=== PATIENT | female | born 1970 | race Caucasian/White ===

== ENCOUNTER 2021-09-17 11:28 | Emergency (ER) | payer OTHER, SELFPAY ==
--- NOTE | ~2021-09-17 | XR_ITS ---
XR finger 3rd LT min 2V 09/17/2021 11:46 Indication: Left third finger pain after trauma Procedure: 4 views left third finger Comparison: No prior studies for comparison. Findings: No fracture, subluxation or dislocation. There is anatomic alignment. No erosive changes. N o significant soft tissue abnormality. No foreign bodies. Impression: 1: No acute abnormality of the left third finger. Reviewed, dictated and finalized at location A. MANAGER Impression: 1: No acute abnormality of the left third finger.
[2021-09-17 11:34] VITALS: BP 175/91; PULSE 94; RESP 16; TEMP 37.4; O2SAT 100
--- NOTE | 2021-09-17 12:07 | ED.GENADULT ---
HPI - General Adult General Chief complaint: Extremity Injury, Upper Stated complaint: left hand finger injury Source: patient Mode of arrival: ambulatory Limitations: no limitations History of Present Illness HPI narrative: Pt presents for evaluation of pain in 3rd digit of left hand for the past two days. She states she slipped on ice and landed with her left arm outstretched. She did not hit her head nor did she have a LOC. She states her pain level is 2/10 in severity, without descriptive quality. She states it only really hurts when she bumps it on something. No loss of ROM. No paresthesias. She is right hand dominant. She took tylenol for her pain which helped. No additional complaints or concerns. Related Data Home Medications Medication Instructions Recorded Confirmed No Home Medications 09/17/21 09/17/21 Allergies Allergy/AdvReac Type Severity Reaction Status Date / Time Tetanus Vaccines and Toxoid Allergy Swelling Verified 09/17/21 11:42 pain meds AdvReac Unknown Uncoded 09/17/21 11:41 Review of Systems Review of Systems: CONSTITUTIONAL: Denies fever, chills, or sweats. EYES: Denies visual changes, redness, or discharge. ENT: Denies rhinorrhea, congestion, sore throat, or otalgia. CARDIOVASCULAR: Denies chest pain, palpitations, or edema. RESPIRATORY: Denies cough or dyspnea. GASTROINTESTINAL: Denies abdominal pain, nausea, vomiting, or diarrhea. GENITOURINARY: Denies dysuria or hematuria. SKIN: Denies rash or itching. MUSCULOSKELETAL: Reports pain in 3rd digit of left hand NEUROLOGIC: Denies headache, numbness, dizziness, or weakness. PSYCHIATRIC: Denies anxiety or depression. [facility] Past Medical History Medical History No pertinent past medical history Surgical History Surgical History No pertinent past surgical history Family History Family History Mother History of thyroid disease Social History Social History Smoking status: Never smoker Substance use: never Gender identity (if verbalized by the patient): Female Spiritual care concerns: No Exam Narrative: GENERAL: Well-appearing, well-nourished, and in no acute distress. HEAD: Normocephalic, atraumatic. EYES: PERRLA and EOMI. ENT: Nares clear, no rhinorrhea or epistaxis. Mucous membranes moist. Oropharynx without tonsillar hypertrophy exudate or other lesions. Bilateral TMs pearly canchola nonbulging NECK: Supple. No adenopathy or masses. No carotid bruits or JVD CHEST: Clear to auscultation. No respiratory distress. No wheezes rales or rhonchi HEART: Regular rate and rhythm. No murmur heard. Normal peripheral pulses. ABDOMEN: Soft, nontender, nondistended, normal active bowel sounds. EXTREMITIES: Normal range of motion. There is swelling noted to 3rd digit of left hand. There is tenderness in DIP and distal phalanx of 3rd digit of left hand SKIN: Warm, dry, no rash. NEURO: No focal deficits. Alert and oriented x3. PSYCH: Normal mood and affect. Course Course Emergency Course: This is a 50-year-old female who presented with complaints of pain in the third digit of the left hand. X ray was negative for fracture. She was provided with a finger splint. Her BP was elevated but was asymptomatic in that regard. She was advised to follow up this coming week for further evaluation and management of her finger pain and also reassessment of her BP. She may take NSAIDs for pain. She should return for worsening symptom. Pt in agreement with plan of care. Level of Care: Express Care Visit Vital Signs Vital signs: Vital Signs Temperature 37.4 C 09/17/21 11:34 Pulse Rate 94 09/17/21 11:34 Respiratory Rate 16 09/17/21 11:34 Blood Pressure 175/91 H 09/17/21 11:34 Pulse Oximetry
== END 2021-09-17 12:15 | disposition home or self-care (01) ==
PROVIDERS: Emergency Provider Nurse Practitioner; PCP Family Medicine
DX: S60.032A Contusion of left middle finger without damage to nail, initial encounter (principal); W00.0XXA Fall on same level due to ice and snow, initial encounter
CPT/HCPCS: 29130; 73140; 99213; G0463